=== PATIENT | male | born 1935 | race Caucasian/White ===

== ENCOUNTER 2017-06-12 20:14 | Emergency (ER) | payer MEDICARE, BC ==
[~2017-06-12] VITALS: Ht 170.2 cm; Wt 73.5 kg
[~2017-06-12 20:14] MED LIST: 8 Hour C500 MG; Cinnamon500 MG PO; Cyclobenzaprine5 MG PO; HYDCHL25 PO; Keflex500 MG PO; PROSTATE HEALT1 EACH PO; VITAMIN D310000 UNIT PO
== END 2017-06-12 23:45 | disposition home or self-care (01) ==
LOC: ER 20:14
DX: S00.83XA Contusion of other part of head, initial encounter (principal); I10 Essential (primary) hypertension; Z85.46 Personal history of malignant neoplasm of prostate; W18.30XA Fall on same level, unspecified, initial encounter; Z88.0 Allergy status to penicillin; Z79.899 Other long term (current) drug therapy; Z79.2 Long term (current) use of antibiotics; Z87.891 Personal history of nicotine dependence
CPT/HCPCS: 70450; 99284

== ENCOUNTER 2018-08-29 19:47 | Observation (INO) | payer MEDICARE, BC ==
[~2018-08-29] VITALS: Ht 177.8 cm; Wt 72.6 kg
[2018-08-29 20:14] LABS: BASOPHILS ABSOLUTE AUTO 0.04 K/mm3 (0.00-0.23); BASOPHILS PERCENT AUTO 1 % (0-2); EOSINOPHILS ABSOLUTE AUTO 0.14 K/mm3 (0.00-0.68); EOSINOPHILS PERCENT AUTO 2 % (0-6); Hematocrit 50.7 % (37.0-53.0); Hemoglobin 16.8 g/dL (13.5-17.5); IMMATURE GRAN ABSOLUTE AUTO 0.09 K/mm3 (0.00-0.10); IMMATURE GRAN PERCENT AUTO 1 % (0-1); LYMPHOCYTES ABSOLUTE AUTO 0.88 K/mm3 (0.84-5.20); LYMPHOCYTES PERCENT AUTO 11 % (21-46); MONOCYTES ABSOLUTE AUTO 0.82 K/mm3 (0.16-1.47); MONOCYTES PERCENT AUTO 10 % (4-13); Mean Corpuscular HGB Conc 33.1 g/dL (31.5-36.5); Mean Corpuscular Volume 100 fL (80-100); Mean Platelet Volume 10.5 fL (9.1-12.4); NEUTROPHILS ABSOLUTE AUTO 5.94 K/mm3 (1.96-9.15); NEUTROPHILS PERCENT AUTO 75 % (41-73); Platelet Count 143 K/mm3 (150-400); RDW Coefficient Variation 12.4 % (11.7-14.2); RDW Standard Deviation 45.7 fL (35.1-46.3); Red Blood Cell Count 5.09 M/mm3 (4.30-5.90); White Blood Cell Count 7.91 K/mm3 (4.00-11.30)
[2018-08-29 20:32] LABS: Albumin, Blood 3.8 g/dL (3.4-5.0); Albumin/Globulin Ratio 1.1 (0.8-1.8); Bilirubin, Total 0.5 mg/dL (0.1-1.0); Bun/Creatinine Ratio 18.1 (12.0-20.0); Calcium, Blood 9.1 mg/dL (8.5-10.1); Creatinine, Blood 1.55 mg/dL (0.60-1.20); Globulin, Blood 3.5 g/dL (2.2-4.0); Potassium, Blood 3.9 mmol/L (3.5-5.5); Total Protein, Blood 7.3 g/dL (6.4-8.2)
[2018-08-29 23:43] LABS: International Normalized Ratio 0.98; Prothrombin Time Results 10.4 Sec (9.7-11.5)
[2018-08-30 02:39] LABS: Source, Urine Clean Catch
[2018-08-30 02:41] LABS: Bilirubin, Urine Neg (Neg); Blood, Urine Neg (Neg); Glucose Qualitative, Urine Neg (Neg); Ketones, Urine Neg (Neg); Leukocyte Esterase, Urine Neg (Neg); Nitrite, Urine Neg (Neg); Protein, Urine Neg (Neg); Urobilinogen, Urine NORM (Normal)
[2018-08-30 02:46] LABS: Appearance, Urine Clear (Clear); Color, Urine Yellow (P-Yellow)
[2018-08-30 05:12] LABS: Hematocrit 48.3 % (37.0-53.0); Hemoglobin 16.3 g/dL (13.5-17.5); Mean Corpuscular HGB 33.6 pg (26.0-34.0); Mean Corpuscular HGB Conc 33.7 g/dL (31.5-36.5); Mean Corpuscular Volume 100 fL (80-100); Mean Platelet Volume 10.4 fL (9.1-12.4); Platelet Count 128 K/mm3 (150-400); RDW Coefficient Variation 12.5 % (11.7-14.2); RDW Standard Deviation 45.9 fL (35.1-46.3); Red Blood Cell Count 4.85 M/mm3 (4.30-5.90); White Blood Cell Count 9.58 K/mm3 (4.00-11.30)
[2018-08-30 05:34] LABS: Albumin, Blood 3.7 g/dL (3.4-5.0); Albumin/Globulin Ratio 1.2 (0.8-1.8); Bilirubin, Total 0.9 mg/dL (0.1-1.0); Calcium, Blood 8.7 mg/dL (8.5-10.1); Creatinine, Blood 1.28 mg/dL (0.60-1.20); Globulin, Blood 3.2 g/dL (2.2-4.0); Potassium, Blood 3.7 mmol/L (3.5-5.5); Total Protein, Blood 6.9 g/dL (6.4-8.2)
--- NOTE | 2018-08-30 08:04 | NUR ---
SHIFT SUMMARY PT A&O X3. 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 NEURO STATUS UNCHANGED OVER SHIFT. LACERATION TO POSTERIOR SCALP INTACT, GAUZE PLACED OVER SITE D/T SMALL AMOUNT OF SEROSANG DRAINAGE. BED ALARM AND SIDE RAILS FOR SAFETY. SCD'S TO BLE'S. RA; PT DENIES SOB, CP AND NAUSEA. TELEMETRY IN PLACE; SR WITH PVC'S. PT DEMONSTRATES CALL LIGHT USE. REPORT GIVEN TO DAY SHIFT RN.
--- NOTE | 2018-08-30 15:41 | NUR ---
SUMMARY PT IS A/O X2-3, FORGETFUL @ X'S HOWEVER EASILY REORIENTS. S/P FALL @ HOME (AMALIA TERRACE), LACERATION W THERESA IN PLACE TO OCCIPITAL REGION BACK OF HEAD. DRSG COVERING SITE TO ABSORB SM AMT BLEEDING. NEURO CHECKS UNCHANGED T/O DAY. DR SEPULVEDA IN TO SEE HIM THIS AM, ORDER REPEAT OF HEAD CT, RADIOLOGY STATE PROCEDURE WILL BE APPROX 2044 TONITE. TELE NSR 70'S. GERMANIA FISHER TODAY, STATE GAIT STEADY, SBA W FWW. PT IS CREEK, PLEASANT/COOPERATIVE. VSS.
--- NOTE | 2018-08-31 04:38 | NUR ---
SHIFT SUMMARY: PT IS ALERT AND ORIENTED. PT IS CALM AND COOPERATIVE WITH CARE. PT NOT USING HIS CALL LIGHT FOR ASSISTANCE, BED ALARM SET. PT IS A ONE PERSON ASSIST WITH FWW. REPEAT CT OF THE HEAD COMPLETED, RESULTS PENDING. PT DENIES PAIN, NAUSEA, VOMITING, AND SOB. NO ACUTE CHANGES OR COMPLICATIONS THIS SHIFT. BED IN LOW POSITION, CALL LIGHT WITHIN REACH.
[2018-08-31] MEDS ORDERED: ACET325 PO (12:02)
--- NOTE | 2018-08-31 15:17 | NUR ---
DISCHARGE NOTE IV DC'D WNL. MEDICATIONS FAXED TO PREFERED PHARMACY. PT ONLY DISCHARGED WITH ORDER FOR TYLENOL. PT DRESSED IN [facility] HIS PERSONAL CLOTHES WERE SOILED. PERSONAL BELONGINGS PROVIDED TO PT. TRANSPORT ARRANGED THROUGH [facility] VIA WHEELCHAIR. PT PROVIDED WITH HARDCOPY AND VERBAL INSTRUCTIONS FOR DISCHARGE. PT HAD NO FURTHER QUESTIONS. [facility] ARRIVED AND TRANSPORTED PT TO [facility].
== END 2018-08-31 14:48 | disposition home or self-care (01) ==
LOC: ER 19:47 → MEDS 23:52
PROVIDERS: Emergency Medicine; ADMIT Internal Medicine
DX: S06.2X9A Diffuse traumatic brain injury with loss of consciousness of unspecified duration, initial encounter (principal); S01.01XA Laceration without foreign body of scalp, initial encounter; N17.9 Acute kidney failure, unspecified; R53.1 Weakness; I12.9 Hypertensive chronic kidney disease with stage 1 through stage 4 chronic kidney disease, or unspecified chronic kidney disease; D69.6 Thrombocytopenia, unspecified; N18.3 Chronic kidney disease, stage 3 (moderate); C61 Malignant neoplasm of prostate; K57.92 Diverticulitis of intestine, part unspecified, without perforation or abscess without bleeding; Z88.0 Allergy status to penicillin; W18.30XA Fall on same level, unspecified, initial encounter
CPT/HCPCS: 12002; 36415; 70450; 72125; 80053; 81003; 82947; 83036; 85025; 85027; 85610; 93005; 93010; 97116; 97161; 99285-25; J7030

== ENCOUNTER 2018-10-27 18:02 | Emergency (ER) | payer MEDICARE ==
[~2018-10-27] VITALS: Ht 177.8 cm; Wt 74.8 kg
[~2018-10-27 18:02] MED LIST changes: +ACET325 PO
[2018-10-27 20:19] LABS: Source, Urine Clean Catch
[2018-10-27 20:20] LABS: BASOPHILS ABSOLUTE AUTO 0.04 K/mm3 (0.00-0.23); BASOPHILS PERCENT AUTO 1 % (0-2); EOSINOPHILS ABSOLUTE AUTO 0.13 K/mm3 (0.00-0.68); EOSINOPHILS PERCENT AUTO 2 % (0-6); Hematocrit 43.7 % (37.0-53.0); Hemoglobin 14.9 g/dL (13.5-17.5); IMMATURE GRAN ABSOLUTE AUTO 0.05 K/mm3 (0.00-0.10); IMMATURE GRAN PERCENT AUTO 1 % (0-1); LYMPHOCYTES ABSOLUTE AUTO 0.53 K/mm3 (0.84-5.20); LYMPHOCYTES PERCENT AUTO 7 % (21-46); MONOCYTES ABSOLUTE AUTO 0.72 K/mm3 (0.16-1.47); MONOCYTES PERCENT AUTO 9 % (4-13); Mean Corpuscular HGB Conc 34.1 g/dL (31.5-36.5); Mean Corpuscular Volume 100 fL (80-100); Mean Platelet Volume 10.5 fL (9.1-12.4); NEUTROPHILS ABSOLUTE AUTO 6.15 K/mm3 (1.96-9.15); NEUTROPHILS PERCENT AUTO 81 % (41-73); Platelet Count 155 K/mm3 (150-400); RDW Coefficient Variation 12.6 % (11.7-14.2); RDW Standard Deviation 46.2 fL (35.1-46.3); Red Blood Cell Count 4.38 M/mm3 (4.30-5.90); White Blood Cell Count 7.62 K/mm3 (4.00-11.30)
[2018-10-27 20:22] LABS: Appearance, Urine Clear (Clear); Bilirubin, Urine Neg (Neg); Blood, Urine Neg (Neg); Color, Urine Amber (P-Yellow); Glucose Qualitative, Urine Neg (Neg); Ketones, Urine 2+ (Neg); Leukocyte Esterase, Urine Neg (Neg); Nitrite, Urine Neg (Neg); Protein, Urine Neg (Neg); Specific Gravity, Urine 1.025 (1.003-1.022); Urobilinogen, Urine NORM (Normal)
[2018-10-27 20:42] LABS: Alanine Aminotransfer (ALT/SGP 30 U/L (12-78); Albumin, Blood 3.5 g/dL (3.4-5.0); Albumin/Globulin Ratio 1.1 (0.8-1.8); Alk Phos 70 U/L (50-136); Anion Gap 4 mmol/L (6-16); Aspartate Aminotrans (AST/SGOT 42 U/L (12-37); Bilirubin, Total 0.9 mg/dL (0.1-1.0); Blood Urea Nitrogen 31 mg/dL (8-24); Bun/Creatinine Ratio 22.8 (12.0-20.0); CO2, Blood 30 mmol/L (21-32); Calcium, Blood 8.8 mg/dL (8.5-10.1); Chloride, Blood 106 mmol/L (98-108); Creatinine, Blood 1.36 mg/dL (0.60-1.20); Ethanol (Alcohol), Blood, Med <3 mg/dL; Globulin, Blood 3.2 g/dL (2.2-4.0); Glomerular Filtration Rate 53 (60-); Glucose, Blood 146 mg/dL (70-99); Potassium, Blood 4.3 mmol/L (3.5-5.5); Sodium, Blood 140 mmol/L (136-145); Total Protein, Blood 6.7 g/dL (6.4-8.2)
== END 2018-10-27 21:50 | disposition short-term general hospital (02) ==
LOC: ER 18:02
PROVIDERS: Emergency Medicine
DX: S06.5X0A Traumatic subdural hemorrhage without loss of consciousness, initial encounter (principal); I10 Essential (primary) hypertension; Z88.0 Allergy status to penicillin; Z87.891 Personal history of nicotine dependence; Z91.81 History of falling; W19.XXXA Unspecified fall, initial encounter
CPT/HCPCS: 70450; 72125; 80053; 81003; 85025; 99285-25; G0480

== ENCOUNTER 2019-04-01 09:58 | Observation (INO) | payer MEDICARE, BC ==
[~2019-04-01] VITALS: Ht 177.8 cm; Wt 74.8 kg
[2019-04-01] MEDS ORDERED: GLIP5ER PO (12:16)
[2019-04-01] MEDS ORDERED: FINA5 PO (12:16)
[2019-04-01] MEDS ORDERED: METF500 PO (12:16)
[2019-04-01] MEDS ORDERED: Hydrochlorothia25 MG PO (12:17)
[2019-04-01 13:31] LABS: Hematocrit 36.1 % (37.0-53.0); Hemoglobin 11.9 g/dL (13.5-17.5); Mean Corpuscular HGB 34.2 pg (26.0-34.0); Mean Corpuscular Volume 104 fL (80-100); Mean Platelet Volume 10.1 fL (9.1-12.4); Platelet Count 153 K/mm3 (150-400); RDW Coefficient Variation 14.3 % (11.7-14.2); Red Blood Cell Count 3.48 M/mm3 (4.30-5.90); White Blood Cell Count 6.69 K/mm3 (4.00-11.30)
[2019-04-01 13:58] LABS: International Normalized Ratio 1.02; Prothrombin Time Results 10.8 Sec (9.7-11.5)
[2019-04-01 14:02] LABS: Magnesium, Blood 1.8 mg/dL (1.6-2.4)
[2019-04-01 14:03] LABS: Bun/Creatinine Ratio 17.6 (12.0-20.0); Calcium, Blood 8.2 mg/dL (8.5-10.1); Creatinine, Blood 1.31 mg/dL (0.60-1.20); Potassium, Blood 4.2 mmol/L (3.5-5.5)
[2019-04-01] MEDS ORDERED: CYAN1000I PO (15:52)
--- NOTE | 2019-04-01 17:45 | NUR ---
PATIENT TO [place] ATT[place] PATIENT LEFT THE UNIT BY HOSP BED TO [place] ATTOR[place], ACCOMPANIED BY TWO [place] ATTORNEY STAFF AND ONE EQUIPMENT SCHEDULER.
--- NOTE | 2019-04-01 18:53 | NUR ---
SHIFT SUMMARY ASSUMED CARE OF PATIENT AT AROUND 1530 HOURS, PT AWAKE AND ALERT ON ER CHUYITA, PT TRANSFERRED SELF TO UNIT HOSP BED WITH ONE PER ASSIST. PATIENT WAS NPO ON ARRIVAL PENDING PCI FOR DVT. MEDICATED AND TREATED PATIENT PER UNIT PROTOCOL AND MD ORDER, ALL VSS WHILE ON UNIT. PATIENT WAS ATTENDED FOR THE MAJORITY OF TIME BY RUBBER STAMP DIES INSPECTOR FROM HIS LIVING FACILITY, KARL FROM [facility]. PATIENT LEFT UNIT FOR GLUING MACHINE OFFBEARER PROCEDURE AT AROUND 1700, HAS NOT RETURNED BY END OF SHIFT. WILL TRANSFER CARE AND REPORT TO ONCOMING SHIFT.
--- NOTE | 2019-04-01 19:08 | NUR ---
Pt returned from the [facility] post Dr. Song procedure. Bedside report was given to Loreta Billings by Derian, RNs from the heart center. Caregiver Tomeka from [facility] is at the bedside.
--- NOTE | 2019-04-01 19:15 | NUR ---
CARE ASSUMPTION PT RETURN FROM [facility] @ APPROX 1900 W/ R GROIN ACCESS SITE. GROIN SITE WNL, NO BLEEDING, NO HEMATOMA. PT LYING FLAT. A&O X4. VSS. WILL CONTINUE TO MONITOR AND PROVIDE CARE.
[2019-04-02 03:41] LABS: Hematocrit 34.5 % (37.0-53.0); Hemoglobin 11.4 g/dL (13.5-17.5); Mean Corpuscular HGB 33.5 pg (26.0-34.0); Mean Corpuscular Volume 102 fL (80-100); Mean Platelet Volume 9.7 fL (9.1-12.4); Platelet Count 140 K/mm3 (150-400); RDW Coefficient Variation 14.2 % (11.7-14.2); RDW Standard Deviation 52.5 fL (35.1-46.3); White Blood Cell Count 5.94 K/mm3 (4.00-11.30)
[2019-04-02 04:05] LABS: Alanine Aminotransfer (ALT/SGP 14 U/L (12-78); Albumin, Blood 2.7 g/dL (3.4-5.0); Alk Phos 50 U/L (50-136); Anion Gap 4 mmol/L (6-16); Aspartate Aminotrans (AST/SGOT 14 U/L (12-37); Bilirubin, Total 0.6 mg/dL (0.1-1.0); Blood Urea Nitrogen 19 mg/dL (8-24); CO2, Blood 28 mmol/L (21-32); Calcium, Blood 7.8 mg/dL (8.5-10.1); Chloride, Blood 111 mmol/L (98-108); Creatinine, Blood 1.19 mg/dL (0.60-1.20); Globulin, Blood 2.6 g/dL (2.2-4.0); Glomerular Filtration Rate >60 (60-); Glucose, Blood 78 mg/dL (70-99); Magnesium, Blood 1.7 mg/dL (1.6-2.4); Potassium, Blood 3.9 mmol/L (3.5-5.5); Sodium, Blood 143 mmol/L (136-145); Total Protein, Blood 5.3 g/dL (6.4-8.2)
--- NOTE | 2019-04-02 04:14 | NUR ---
SHIFT SUMMARY PT A&O X4 W/ EPISODES OF FORGETFULNESS. R GROIN SITE RECOVERY WNL, NO BLEEDING, NO HEMATOMA. CBG'S IN THE 60s AFTER PT NOT EATING DINNER AND NOT WANTING TO SNACK. PT AGREEABLE TO DRINKING A GLASS OF ORANGE JUICE. CBG 78 W/ MORNING LABS. PT W/ EPISODES OF CONTINENCE AND INCONTINENCE THIS SHIFT, WEARING ATTENDS. PRN JERMAINE CARE/ATTENDS CHANGES PROVIDED. WILL CONTINUE TO MONITOR AND PROVIDE CARE UNTIL REPORT OFF TO DAY SHIFT RN.
--- NOTE | 2019-04-02 07:36 | NUR ---
ASSUMED CARE: PT RESTING IN BED. GROIN SITE WITHOUT SIGN OF HEMATOMA OR BLEEDING. +3 PITTING EDEMA NOTED TO LEFT FOOT WHICH NIGHT RN STATES IS IMPROVED. NO ACUTE NEEDS OR CONCERNS AT THIS TIME.
--- NOTE | 2019-04-02 10:00 | NUR ---
ASSISTED TO [facility]. 2 ASSIST, WITH WALKER. REQUIRED REDIERECTION AND WAS UNSTEADY ON FEET. BED ALARM ON. CAR BARN LABORER AWARE
--- NOTE | 2019-04-02 11:15 | NUR ---
DR FRANCIS CAME TO SEE PT. AWARE OF AMBULATION ISSUES THIS AM. ORDERS FOR PT/OT AND SS. WILL DETERMINE FURTHER NEEDS AFTER EVALS
--- NOTE | 2019-04-02 15:07 | NUR ---
ADMINISTRATORS FROM [facility] CAME BY TO SEE PT. PT/OT BOTH EVALUATED PT WITH 1 ASSIST RECOMMENDATIONS. ADMINISTRATORS AWARE THAT IT TOOK 2 ASSIST TO GET HIM OUT OF BED WITH FREQUENT PROMPTING. THEY WERE AGREEABLE TO TAKING HIM BACK UNDER THESE CIRCUMSTANCES. DC PLANNING SAID THAT DR FRANCIS PLANS TO EVALUATE LEG TOMORROW AND DETERMINE IF ABLE TO DC. [facility] STAFF STATES THEY CAN TAKE HIM BACK ON WEEKEND AND LEFT CONTACT INFORMATION. TUG MASTER AWARE
--- NOTE | 2019-04-02 17:09 | NUR ---
SPOKE WITH DR FRANCIS REGARDING PT'S DC PLAN. SAYS OK TO DC. CHECKED WITH DUNCAN AND COORDINATOR WENT HOME FOR THE DAY AND ADMIT WOULD HAVE TO BE IN AM. AWARE. POSSIBLE DC TOMORROW. TELECOM COORDINATOR AWARE
--- NOTE | 2019-04-02 18:31 | NUR ---
SHIFT SUMMARY: PT HAS BEEN UP IN CHAIR MOST OF DAY. CNAS ASSISTED PT BACK TO BED. BED OR CHAIR ALARMS IN PLACE. PT OCCASIONALLY USES CALL LIGHT OR CALLS OUT FOR HELP. PLAN IS FOR DC HOME TOMORROW. NO ACUTE NEEDS OR CONCERNS AT THIS TIME.
--- NOTE | 2019-04-03 06:17 | NUR ---
SHIFT SUMMARY PT HAS REMAINED ALERT AND ORIENTED TO SELF AND EVENT THROUGHOUT THE NIGHT, REMAINS DISORIENTED TO CURRENT DATE/TIME AND LOCATION. PT IS VERY PLEASANT AND COOPERATIEVE WITH CARE, EASILY REDIRECTABLE. PT HAS REMAINED ON BEDREST THROUGHOUT THE NIGHT, SHIFTING SELF IN BED AND AGREEABLE TO TURNING. HAS REMAINED MOSTLY INCONTINENT OF URINE, BUT DOES CALL OUT INTO THE HALLWAY FOR HELP, MOSTLY NEEDING TO USE RESTROOM. LLE REMAINS RED AND SWOLLEN THROUGHOUT THE NIGHT, PT DENIES PAIN TO EXTREMITY. PT WILL OCCASIONALLY SAY "OUCH" WHEN MOVING IN BED, BUT DENIES PAIN WHEN ASKED WHERE HE IS HURTING. NO OTHER CHANGES NOTED FROM INITIAL ASSESSMENT. WILL CONTINUE TO MONITOR AND REPORT TO ONCOMING SHIFT RN. BED IN LOW POSITION, CALL LIGHT IN REACH. BED ALARM SET FOR SAFETY.
--- NOTE | 2019-04-03 13:20 | NUR ---
[facility]
--- NOTE | 2019-04-03 14:41 | NUR ---
DISCHARGED REPORT CALLED TO [facility]. TELE DC'D. IV DC'D, CATHETER INTACT. PT LEFT UNIT IN WC W/POSSESSIONS AND DC PAPERWORK ACCOMPANIED BY TRANSPORT.
[2019-06-16] MEDS ORDERED: DICLOFEN 3%-HYA30 GM (09:46)
[2019-06-16] MEDS ORDERED: GAVILAX17 GM PO (09:46)
[2019-06-16] MEDS ORDERED: SENNA-S LAXATI1 EACH PO (09:47)
[2019-06-16] MEDS ORDERED: ENEMA BOTTLE1 EACH (09:48)
[2019-06-16] MEDS ORDERED: BISA10S PR (09:48)
[2019-06-16] MEDS ORDERED: Cyclobenzaprine5 MG PO (09:49)
[2019-06-16] MEDS ORDERED: FURO20 PO (09:49)
[2019-06-16] MEDS ORDERED: ACET325 PO (09:50)
[2019-06-16] MEDS ORDERED: Pepto-Bismol262 MG PO (09:50)
[2019-06-16] MEDS ORDERED: MILK OF MA400 MG/5 M PO (09:51)
[2019-06-16] MEDS ORDERED: MYLANTA TONIGH355 ML PO (09:52)
== END 2019-04-03 14:36 | disposition home or self-care (01) ==
LOC: ER 09:58 → PCU 12:56
PROVIDERS: Nurse Practitioner Acute Care; ADMIT Internal Medicine
DX: I82.412 Acute embolism and thrombosis of left femoral vein (principal); I82.442 Acute embolism and thrombosis of left tibial vein; I82.452 Acute embolism and thrombosis of left peroneal vein; I82.812 Embolism and thrombosis of superficial veins of left lower extremity; I12.9 Hypertensive chronic kidney disease with stage 1 through stage 4 chronic kidney disease, or unspecified chronic kidney disease; E11.22 Type 2 diabetes mellitus with diabetic chronic kidney disease; F03.90 Unspecified dementia, unspecified severity, without behavioral disturbance, psychotic disturbance, mood disturbance, and anxiety; N40.0 Benign prostatic hyperplasia without lower urinary tract symptoms; N18.3 Chronic kidney disease, stage 3 (moderate); Z66 Do not resuscitate; Z88.0 Allergy status to penicillin; Z79.84 Long term (current) use of oral hypoglycemic drugs; Z79.899 Other long term (current) drug therapy; Z91.81 History of falling; Z85.46 Personal history of malignant neoplasm of prostate; Z87.891 Personal history of nicotine dependence
CPT/HCPCS: 36415; 37191; 80048; 80053; 82947; 83735; 85027; 85610; 85730; 97116; 97162; 97165; 97530; 97535; 99152; 99153; 99285; C1769; C1880; C1894; G0378; J1644; J2250; J3010; J7030; Q9967

== ENCOUNTER 2019-06-16 11:31 | Day surgery (SDC) | payer MEDICARE, BC ==
[~2019-06-16] VITALS: Ht 170.2 cm; Wt 70.0 kg
[~2019-06-16 11:31] MED LIST changes: +BISA10S PR; +CYAN1000I PO; +DICLOFEN 3%-HYA30 GM; +ENEMA BOTTLE1 EACH; +FINA5 PO; +FURO20 PO; +GAVILAX17 GM PO; +GLIP5ER PO; +Hydrochlorothia25 MG PO; +METF500 PO; +MILK OF MA400 MG/5 M PO; +MYLANTA TONIGH355 ML PO; +Pepto-Bismol262 MG PO; +SENNA-S LAXATI1 EACH PO
[2019-06-16 13:02] LABS: BASOPHILS ABSOLUTE AUTO 0.04 K/mm3 (0.00-0.23); BASOPHILS PERCENT AUTO 1 % (0-2); EOSINOPHILS ABSOLUTE AUTO 0.13 K/mm3 (0.00-0.68); EOSINOPHILS PERCENT AUTO 2 % (0-6); Hematocrit 45.6 % (37.0-53.0); Hemoglobin 14.7 g/dL (13.5-17.5); IMMATURE GRAN ABSOLUTE AUTO 0.03 K/mm3 (0.00-0.10); IMMATURE GRAN PERCENT AUTO 0 % (0-1); LYMPHOCYTES ABSOLUTE AUTO 0.67 K/mm3 (0.84-5.20); LYMPHOCYTES PERCENT AUTO 9 % (21-46); MONOCYTES ABSOLUTE AUTO 0.69 K/mm3 (0.16-1.47); MONOCYTES PERCENT AUTO 9 % (4-13); Mean Corpuscular HGB 32.8 pg (26.0-34.0); Mean Corpuscular HGB Conc 32.2 g/dL (31.5-36.5); Mean Corpuscular Volume 102 fL (80-100); Mean Platelet Volume 10.6 fL (9.1-12.4); NEUTROPHILS ABSOLUTE AUTO 6.35 K/mm3 (1.96-9.15); NEUTROPHILS PERCENT AUTO 80 % (41-73); Platelet Count 162 K/mm3 (150-400); Red Blood Cell Count 4.48 M/mm3 (4.30-5.90); White Blood Cell Count 7.91 K/mm3 (4.00-11.30)
[2019-06-16 13:16] LABS: International Normalized Ratio 1.01; Prothrombin Time Results 10.8 Sec (9.7-11.5)
--- NOTE | 2019-06-16 13:36 | NUR ---
PT MEDICATED WITH 1/2 AMP OF D5 PER ORDERS PER MD. PLAN TO RECHECK PTS CBG IN 15MINS
[2019-06-16 13:59] LABS: Albumin, Blood 3.8 g/dL (3.4-5.0); Albumin/Globulin Ratio 1.1 (0.8-1.8); Bilirubin, Total 0.5 mg/dL (0.1-1.0); Bun/Creatinine Ratio 22.9 (12.0-20.0); Creatinine, Blood 1.44 mg/dL (0.60-1.20); Globulin, Blood 3.6 g/dL (2.2-4.0); Potassium, Blood 4.1 mmol/L (3.5-5.5); Total Protein, Blood 7.4 g/dL (6.4-8.2)
--- NOTE | 2019-06-16 15:20 | NUR ---
PT TO RECOVERY POST PROCEDURE. PT IS AWAKE AND ANSWERING QUESTIONS APPROPRIATELY. PT DENIES PAIN OR SOB. MONITOR SR WITH PVC'S 60'S, B/P 155/69, AFEBRILE, SPO2 96% RA. PT'S BLOOD SUGAR 71-ASYMPTOMATIC, ADMINISTERED 240 CC ORANGE JUICE-WILL CONTINUE TO MONITOR. R NECK ACCESS SITE (VENOUS) NO SWELLING/HEMATOMA, DAVID AND TEGADERM DRSG INTACT.
--- NOTE | 2019-06-16 16:45 | NUR ---
PT WAS TOTAL ASSIST TO GET DRESSED, INC OF URINE, PERICARE PERFORMED AND BRIEF CHANGED; IV REMOVED-CANNULA INTACT. PT WAS 2 PERSON MAX ASSIST TRANSFER FROM [facility] TO /C.
--- NOTE | 2019-06-16 16:50 | NUR ---
PT AND CAREGIVER RECEIVED DISCHARGE INSTRUCTIONS, MED LIST AND "AFTER CARE" INSTRUCTIONS; VERBALIZED GOOD UNDERSTANDING. PT LEFT FACILITY VIA W/C, CONDITION STABLE.
== END 2019-06-16 16:50 | disposition home or self-care (01) ==
LOC: MHTC 11:31
PROVIDERS: Radiology Diagnostic Radiology
DX: Z45.2 Encounter for adjustment and management of vascular access device (principal); I82.409 Acute embolism and thrombosis of unspecified deep veins of unspecified lower extremity; E11.9 Type 2 diabetes mellitus without complications; I10 Essential (primary) hypertension; N40.0 Benign prostatic hyperplasia without lower urinary tract symptoms; Z87.19 Personal history of other diseases of the digestive system; Z85.46 Personal history of malignant neoplasm of prostate; Z88.0 Allergy status to penicillin; Z91.048 Other nonmedicinal substance allergy status; Z79.84 Long term (current) use of oral hypoglycemic drugs; Z79.899 Other long term (current) drug therapy
CPT/HCPCS: 36415; 37193; 80053; 82947; 83036; 84443; 85025; 85610; 99152; 99153; C1769; C1773; C1880; C1887; C1894; J1644; J2250; J3010; J7030; Q9967

== ENCOUNTER 2019-07-27 11:24 | Observation (INO) | payer MEDICARE, BC ==
[~2019-07-27] VITALS: Ht 172.7 cm; Wt 78.0 kg
[2019-07-27 13:40] LABS: BASOPHILS ABSOLUTE AUTO 0.01 K/mm3 (0.00-0.23); BASOPHILS PERCENT AUTO 0 % (0-2); EOSINOPHILS PERCENT AUTO 0 % (0-6); Hematocrit 43.3 % (37.0-53.0); Hemoglobin 14.1 g/dL (13.5-17.5); IMMATURE GRAN ABSOLUTE AUTO 0.02 K/mm3 (0.00-0.10); IMMATURE GRAN PERCENT AUTO 0 % (0-1); LYMPHOCYTES ABSOLUTE AUTO 0.32 K/mm3 (0.84-5.20); LYMPHOCYTES PERCENT AUTO 6 % (21-46); MONOCYTES ABSOLUTE AUTO 0.65 K/mm3 (0.16-1.47); MONOCYTES PERCENT AUTO 13 % (4-13); Mean Corpuscular HGB Conc 32.6 g/dL (31.5-36.5); Mean Corpuscular Volume 101 fL (80-100); Mean Platelet Volume 11.2 fL (9.1-12.4); NEUTROPHILS ABSOLUTE AUTO 4.05 K/mm3 (1.96-9.15); NEUTROPHILS PERCENT AUTO 80 % (41-73); Platelet Count 100 K/mm3 (150-400); RDW Coefficient Variation 12.7 % (11.7-14.2); RDW Standard Deviation 47.7 fL (35.1-46.3); Red Blood Cell Count 4.27 M/mm3 (4.30-5.90); White Blood Cell Count 5.05 K/mm3 (4.00-11.30)
[2019-07-27 13:58] LABS: Adenovirus Not Detected (NOT DETECT); Coronavirus 229E Not Detected (NOT DETECT); Coronavirus HKU1 Not Detected (NOT DETECT); Coronavirus NL63 Not Detected (NOT DETECT)
[2019-07-27 13:58] LABS: Alanine Aminotransfer (ALT/SGP 20 U/L (12-78); Albumin, Blood 3.2 g/dL (3.4-5.0); Albumin/Globulin Ratio 0.9 (0.8-1.8); Alk Phos 52 U/L (50-136); Anion Gap 6 mmol/L (6-16); Aspartate Aminotrans (AST/SGOT 29 U/L (12-37); Bilirubin, Total 0.4 mg/dL (0.1-1.0); Blood Urea Nitrogen 31 mg/dL (8-24); Bun/Creatinine Ratio 19.3 (12.0-20.0); CO2, Blood 29 mmol/L (21-32); Calcium, Blood 8.3 mg/dL (8.5-10.1); Chloride, Blood 110 mmol/L (98-108); Creatinine, Blood 1.61 mg/dL (0.60-1.20); Globulin, Blood 3.5 g/dL (2.2-4.0); Glomerular Filtration Rate 44 (60-); Glucose, Blood 120 mg/dL (70-99); Potassium, Blood 3.9 mmol/L (3.5-5.5); Sodium, Blood 145 mmol/L (136-145); Total Protein, Blood 6.7 g/dL (6.4-8.2); Troponin I <0.015 ng/mL (0.000-0.040)
[2019-07-27 13:59] LABS: Bordetella pertussis Not Detected (NOT DETECT); Chlamydophila pneumoniae Not Detected (NOT DETECT); Coronavirus OC43 Not Detected (NOT DETECT); Human Metapneumovirus Not Detected (NOT DETECT); Human Rhinovirus/Enterovirus Not Detected (NOT DETECT); Influenza A/2009-H1 Detected (NOT DETECT); Influenza A/H1 Not Detected (NOT DETECT); Influenza A/H3 Not Detected (NOT DETECT); Influenza B Not Detected (NOT DETECT); Mycoplasma pneumoniae Not Detected (NOT DETECT); Parainfluenza Virus 1 Not Detected (NOT DETECT); Parainfluenza Virus 2 Not Detected (NOT DETECT); Parainfluenza Virus 3 Not Detected (NOT DETECT); Parainfluenza Virus 4 Not Detected (NOT DETECT); Respiratory Syncytial Virus Not Detected (NOT DETECT)
[2019-07-27] MEDS ORDERED: GERI-HYDROLAC222 ML TOP (15:27)
--- NOTE | 2019-07-27 18:43 | NUR ---
SHIFT SUMMARY ED ADMIT THIS AFTERNOON. PATIENT DENIES PAIN, NAUSEA, AND SHORTNESS OF BREATH. PATIENT PLEASANTLY CONFUSED. PATIENT HAD DIFFIUCLTY TRANSFERING FROM ED STRETCHER BUT IS AMBULATORY AT BASELINE. PATIENT MAINTAINING OXYGEN SATURATION ABOVE 92% ON ROOM AIR AT THIS TIME. OCCASSIONAL NONPRODUCTIVE COUGH. CALL LIGHT IN REACH.
[2019-07-27 21:27] LABS: Source, Urine Clean Catch
[2019-07-27 21:31] LABS: Bilirubin, Urine Neg (Neg); Blood, Urine Neg (Neg); Glucose Qualitative, Urine Neg (Neg); Ketones, Urine Neg (Neg); Leukocyte Esterase, Urine Neg (Neg); Nitrite, Urine Neg (Neg); Protein, Urine Neg (Neg); Urobilinogen, Urine NORM (Normal)
[2019-07-27 21:32] LABS: Appearance, Urine Clear (Clear); Color, Urine Yellow (P-Yellow)
[2019-07-28] MEDS ORDERED: CYAN500 PO (01:04)
[2019-07-28] MEDS ORDERED: BISM87SU PO (01:07)
[2019-07-28] MEDS ORDERED: ACET325 PO (01:10)
--- NOTE | 2019-07-28 04:49 | NUR ---
SHIFT SUMMARY PT HAD UNEVENTFUL NIGHT. REMAINED ON RA. NO S/S OF RESPIRATORY DISTRESS. LUNG SOUNDS DIM THROUGHOUT. PT DOES APPEAR TO LOOK SLIGHTLY SOB WHEN LAYING DOWN FLAT FOR ATTENDS CHANGE BUT PT DENIES FEELING THIS WAY. PT INCONTINENT THROUGH MOST OF THE EVENING. DID ATTEMPT TO GET OOB X 1 THIS SHIFT BUT WAS TOO WEAK AND WAS ONLY ABLE TO GET LEGS OFF THE SIDE OF THE BED. PT REPORTED WHEN ATTEMPTING THAT HE NEEDED TO USE THE RESTROOM. ASSISTED PT W/ URINAL. PT DENIES ANY PAIN OR DISCOMFORT. UPDATED PT'S TARA AND NATALIO GALEANO OVER THE PHONE. PT SLEPT THROUGH MOST OF THE NIGHT WHEN NOT BEING WOKEN BY STAFF. VITAL SIGNS STABLE. PT AFEBRILE. NO ACUTE CHANGES THIS SHIFT. WILL CONTINUE TO MONITOR.
[2019-07-28 05:00] LABS: BASOPHILS PERCENT AUTO 0 % (0-2); EOSINOPHILS ABSOLUTE AUTO 0.05 K/mm3 (0.00-0.68); EOSINOPHILS PERCENT AUTO 1 % (0-6); Hematocrit 39.7 % (37.0-53.0); Hemoglobin 12.7 g/dL (13.5-17.5); IMMATURE GRAN ABSOLUTE AUTO 0.01 K/mm3 (0.00-0.10); IMMATURE GRAN PERCENT AUTO 0 % (0-1); LYMPHOCYTES ABSOLUTE AUTO 0.58 K/mm3 (0.84-5.20); LYMPHOCYTES PERCENT AUTO 17 % (21-46); MONOCYTES ABSOLUTE AUTO 0.37 K/mm3 (0.16-1.47); MONOCYTES PERCENT AUTO 11 % (4-13); Mean Corpuscular HGB 32.2 pg (26.0-34.0); Mean Corpuscular Volume 101 fL (80-100); Mean Platelet Volume 10.7 fL (9.1-12.4); NEUTROPHILS ABSOLUTE AUTO 2.44 K/mm3 (1.96-9.15); NEUTROPHILS PERCENT AUTO 71 % (41-73); Platelet Count 81 K/mm3 (150-400); RDW Coefficient Variation 12.6 % (11.7-14.2); RDW Standard Deviation 47.4 fL (35.1-46.3); Red Blood Cell Count 3.94 M/mm3 (4.30-5.90); White Blood Cell Count 3.45 K/mm3 (4.00-11.30)
[2019-07-28 05:26] LABS: Albumin, Blood 2.8 g/dL (3.4-5.0); Albumin/Globulin Ratio 0.9 (0.8-1.8); Bilirubin, Total 0.5 mg/dL (0.1-1.0); Bun/Creatinine Ratio 22.6 (12.0-20.0); Creatinine, Blood 1.37 mg/dL (0.60-1.20); Potassium, Blood 4.2 mmol/L (3.5-5.5); Total Protein, Blood 5.8 g/dL (6.4-8.2)
[2019-07-28 16:42] LABS: PO2 Arterial 103 mmHg (80-100); pH Blood Arterial 7.41 (7.35-7.45)
--- NOTE | 2019-07-28 18:39 | NUR ---
SHIFT SUMMARY PATIENT DENIES PAIN BUT IS STILL AND RESISTANT WITH MOVEMENT AND BED MOBILITY. PATIENT DENEIS NAUSEA AND IS EATING AND DRINKING WELL. PT AND OT WORKED WITH PATIENT. PATIENT UNABLE TO SIT AT EDGE OF BED. PATIENT HAD A CHANGE IN STATUS THIS AFTERNOON AND BECAME SHORT OF BREATH WITH RESPIRATIONS IN THE LOW 30'S, 2L/02 VIA NC APPLIED. HE HAD A FEVER OF 101.5 FOR WHICH TYLENOL WAS GIVEN. DR. VALLEJO NOTIFIED, ORDERS GIVEN FOR ABG, CHEST XRAY, AND ALBUTEROL NEB. ABG AND CHEST XRAY UNREMARKABLE, FEVER REDUCED TO 99.8 AFTER TYLENOL. PATIENT STATES HE IS FEELING MUCH BETTER NOW. RESPIRATIONS NOW 20-22, PATIENT RESTING QUIETLY. RESPIRATION EVEN AND UNLABORED. CALL LIGHT IN REACH.
--- NOTE | 2019-07-29 06:22 | NUR ---
SHIFT SUMMARY PT WENT TO SLEEP SHORTLY AFTER EVENING ASSESMENT AND MED PASS. HAS SLEPT MUCH OF THE NIGHT. AWAKENS EASLIY DURING ATTENDS AND POSITION CHANGES. HAS HAD A WET SOUNDING COUGH. VSS. ON 2LNC. NO ACUTE CHANGES NOTED. WILL CONTINUE TO MONITOR.
--- NOTE | 2019-07-29 17:05 | NUR ---
SHIFT SUMMARY PT IS ALERT AND ORIENTED TO SELF, PT WAS CONFUSSED ON AND SITUATION. PT HAS BECAME COMBATIVE DURING CARE THIS SHIFT. PT COMPLAINES OF PAIN WHEN ROLLING FROM SIDE TO SIDE, BUT APPEARS COMFORTABLE AND PLEASENT WHEN RESTING. PT TOLORATED MEALS THIS SHIFT AND SAMMIE ANY NAUSEA. PT BECAME SOB OF BREATH WITH EXCERTION, PT 2L OF N/C. LUNGS DIMINISHED IN ALL LOBES. PT RECOVERED WHEN RESTING PT HAS BED ALARM ON AND CALL LIGHT WITH IN REACH WILL COUNTINUE TO MONITOR.
--- NOTE | 2019-07-30 08:02 | NUR ---
SHIFT SUMMARY NO ACUTE CHANGES NOTED THIS NIGHT. PT COOPERATIVE WITH CARE BUT FEARFUL WITH TURNING AND ATTENDS CHANGE. VSS. THIS MORNING PT WAS FOUND TO HAVE REMOVED NASAL CANULA AND WAS SATTING AT 96 ON RA. REPORT TO ONCOMING RN.
[2019-07-30] MEDS ORDERED: ALBU2.5V5 INH (11:02)
[2019-07-30] MEDS ORDERED: Tamiflu30 MG PO (11:03)
--- NOTE | 2019-07-30 12:37 | NUR ---
SPOKE WITH KARL (CAREGIVER) WHO ADVISED UNABLE TO TAKE PT BACK TO FACILITY [facility] IF PT IS 2 PERSON ASSIST. SPOKE WITH CARE MANAGEMENT TO ADVISE OF THE UPDATE. CARE MANAGEMENT TO CONTINUE WORKING ON PLACEMENT.
--- NOTE | 2019-07-30 18:11 | NUR ---
SHIFT SUMMARY PT A/O TO SELF AND BUILDING. PT IS A TWO PERSON MAX ASSIST. IV FLUIDS INFUSING THROUGHOUT SHIFT. VSS. PT TURNED Q2 HOURS AND JERMAINE CARE COMPLETED AFTER EACH INCONTINENT EPISODE. PT BEGAN SHIFT WITH O2 ON AND AFTERNOON PROGRESSED WAS ABLE TO MOVE TO ROOM AIR. D/C ORDERS ENTERED BUT PT NEEDS A HIGHER LEVEL OF CARE SO AWAITING PLACEMENT
--- NOTE | 2019-07-31 06:26 | NUR ---
PT REMAINS IN DROPLET ISOLATION WHILE BEING TREATED FOR SWINE FLU. CHANGED AND REPOSITIONED EVERY TWO HOURS, INCONT OF URINE EACH TIME. SOMEWHAT RESISTENT TO REPOSITIONING, EVIDENCED BY GRABBING BED RAILS AND RELUCTANCE TO TURN. DENIED PAIN WHEN ASKED. CALL LIGHT IN REACH.
--- NOTE | 2019-07-31 19:00 | NUR ---
PT. LYING IN BED. NO NOTEABLE CHANGES THIS SHIFT EXCEPT HIS NIECE WHO IS POWER OF WINE MAKER RELATED THAT THE PT. IS A DNR. SHE WILLBE FAXING PAPERWORK TO THAT EFFECT TOMORROW. IT WILL SAY ATTENTION ROOM#361.
--- NOTE | 2019-08-01 03:43 | NUR ---
PT CONTINUES ON DROPLET ISOLATION PRECAUTIONS FOR SWINE FLU, TAKING TAMAFLU. REPOSITOINED AND CHANGED FOR INCONT OF URINE A FEW TIMES THIS SHIFT. PT CAN TURN SELF BUT SEEMS TO FIGHT AND RESIST WHEN ASSISTED TO ANTHER POSITION. LUNGS REMAIN DIMINISHED TO AUSCULTATION. CALL LIGHT IN REACH. NO NOTED ACUTE DISTRESS AT THIS TIME.
[2019-08-01 05:02] LABS: BASOPHILS ABSOLUTE AUTO 0.01 K/mm3 (0.00-0.23); BASOPHILS PERCENT AUTO 0 % (0-2); EOSINOPHILS ABSOLUTE AUTO 0.12 K/mm3 (0.00-0.68); EOSINOPHILS PERCENT AUTO 3 % (0-6); Hematocrit 39.5 % (37.0-53.0); Hemoglobin 12.9 g/dL (13.5-17.5); IMMATURE GRAN ABSOLUTE AUTO 0.03 K/mm3 (0.00-0.10); IMMATURE GRAN PERCENT AUTO 1 % (0-1); LYMPHOCYTES ABSOLUTE AUTO 0.68 K/mm3 (0.84-5.20); LYMPHOCYTES PERCENT AUTO 18 % (21-46); MONOCYTES ABSOLUTE AUTO 0.46 K/mm3 (0.16-1.47); MONOCYTES PERCENT AUTO 12 % (4-13); Mean Corpuscular HGB 32.3 pg (26.0-34.0); Mean Corpuscular HGB Conc 32.7 g/dL (31.5-36.5); Mean Corpuscular Volume 99 fL (80-100); Mean Platelet Volume 11.3 fL (9.1-12.4); NEUTROPHILS PERCENT AUTO 66 % (41-73); Platelet Count 105 K/mm3 (150-400); RDW Standard Deviation 44.6 fL (35.1-46.3); Red Blood Cell Count 3.99 M/mm3 (4.30-5.90)
[2019-08-01 05:32] LABS: Anion Gap 6 mmol/L (6-16); Blood Urea Nitrogen 24 mg/dL (8-24); Bun/Creatinine Ratio 20.5 (12.0-20.0); CO2, Blood 27 mmol/L (21-32); Calcium, Blood 8.3 mg/dL (8.5-10.1); Chloride, Blood 110 mmol/L (98-108); Creatinine, Blood 1.17 mg/dL (0.60-1.20); Glomerular Filtration Rate >60 (60-); Glucose, Blood 100 mg/dL (70-99); Potassium, Blood 3.9 mmol/L (3.5-5.5); Sodium, Blood 143 mmol/L (136-145)
[2019-08-01 14:50] LABS: Thyroid Stimulating Hormone 2.11 uIU/mL (0.360-4.800)
--- NOTE | 2019-08-01 18:14 | NUR ---
SHIFT SUMMARY PATIENT DENIES PAIN, NAUSEA, AND SHORTNESS OF BREATH. PATIENT UNABLE TO GET OUT OF BED OR DANGLE. PATIENT BALE TO ASSIST WITH ROLLING AND SITTING UP WHEN HE IS NOT BEING RESITIVE TO CARE. REPOSITIONED REGULARLY. PATIENT NAPPING OFF AND ON DURING SHIFT. CALL LIGHT IN REACH.
--- NOTE | 2019-08-01 22:43 | NUR ---
REPOSITOINED AND CHANGED EARLIER. WAS RECEPTIVE UNTIL HE ACTUALLY NEEDED TO BE TURNED, AT WHICH TIME HE GRABBED THE RAIL AND BECAME RESISTIVE. MEDICATIONS GIVEN PER MD ORDERS. CALL LIGHT IN REACH. DROPLET PRECAUTIONS MAINTAINED FOR SWINE FLU.
--- NOTE | 2019-08-02 05:35 | NUR ---
RESTING QUIETLY WITH OCCASIONAL WAKENING. DROPLET PRECAUTIONS CONTINUE DUE TO SX OF SWINE FLU. HAD BEEN TAKING TAMIFLU, BUT HAS NOW BEEN DISCONTINUED. ALERT TO QUESTIONS ASKED, CONTINUES TO SHOW ANXIETY WHEN MOVED IN BED. CALL LIGHT IN REACH.
--- NOTE | 2019-08-02 17:53 | NUR ---
PATIENT IS ALERT. ORIENTED TO HIMSELF AND FOLLOWING DIRECTIONS. INCONTINENT OF URINE, ATTENDS IN PLACE. Q2H TURNS AND REPOSITIONING WITH PILLOWS. PATIENT WORKED WITH PT TODAY. NEEDS ENCOURAGEMENT TO EAT FOOD. LAST BM ON 07/29/19, NEW BOWEL CARE ORDER PLACED. NO NEW CONCERNS TODAY. WILL CONTINUE TO MONITOR
--- NOTE | 2019-08-02 18:57 | NUR ---
Initial spiritual care note: Mr. Glass was irritable and dismissive of pastoral care. Advised internet marketing strategist services would remain available.
--- NOTE | 2019-08-02 20:08 | NUR ---
2008-ANEL IS SCRUNCHED DOWN IN BED, HELPED TO REPOSITION HIM. HE DENIED ANY PAIN OR DISCOMFORT. LUNG SOUNDS ARE DIMINISHED WITH SOME COURSE SOUNDS IN THE RIGHT LOWER LOBES. COUGH IS OCCATIONAL PRODUCTION OF THICK MUCUS. DENIES SOB. HE IS A VERY QUITE TO HIMSELF PERSON. DOES HAVE HISTORY OF DEMENTIA. IS ABLE TO STATE ORIENTATION X3, BUT DOES HAVE PERIODS OF CONFUSION. ADMINISTERED MEDICATION PER EMAR. DENIES ANY NEEDS AT THIS TIME. CALL LIGHT IN REACH.
--- NOTE | 2019-08-03 05:53 | NUR ---
SHIFT SUMMARY: ALMA WAS COOPERATIVE IN HIS CARE. VS HAVE BEEN WNL, AFEBRILE. DENIED PAIN OR DISCOMFORT EXCEPT WHEN HE IS POSITIONED. Q2 HOUR POSITION AND CHANGE, WHEN CHANGING HIM HE STIFFENS UP LIKE A BOARD. HE STATES HE HURTS ALL OVER ONLY WHEN HE IS MOVED. ENCOURAGED HIM TO HOLD A PILLOW INSTEAD OF GRABBING BARS TO HELP STAFF TURN HIM. STILL NO BM THIS SHIFT. IV PATENT AND FLUSHED. TOOK MEDS WITH NO PROBLEMS. NO FURTHER CHANGES TO NOTE THIS SHIFT. CALL LIGHT IN REACH.
--- NOTE | 2019-08-03 17:09 | NUR ---
PATIENT IS ALERT AND ORIENTED TO SELF, SURROUNDINGS AND FOLLOWING DIRECTIONS. PATIENT WORKED WITH PT AND OT TODAY AND WAS TRANSFERRED TO THE RECLINER. ANNE BOLESOR SMASH PIECER CAME TO THE HOSPITAL TO ASSESS THE PATIENT THIS AFTERNOON. 2PA WITH FWW AND GAITBELT TO TRANSFER. PATIENT IS INCONTINENT. A COMLPLETE BEDBATH WAS PERFORMED THIS MORNING. WILL CONTINUE TO MONITOR.
--- NOTE | 2019-08-03 19:20 | NUR ---
1920-ANEL IS VERY TIRED HE WAS UP IN THE CHAIR MOST OF THE DAY. HE ALSO DID NOT SLEEP WELL LAST NIGHT. HE IS CURRENTLY IN BED AND FALLING ASLEEP. DENIES ANY PAIN OR DISCOMFORT. LUNG SOUNDS HAVE NOT CHANGED, DID REPORT HE HAS PRODUCTIVE COUGH, LIGHT YELLOW SPUTUM. ATTENDS CURRENTLY DRY. REDNESS NOTED ON BOTTOM. REPOSITIONED WITH PILLOWS. CALL LIGHT IN REACH, WILL CONTINUE TO MONITOR.
--- NOTE | 2019-08-04 06:22 | NUR ---
SHIFT SUMMARY: ALMA HAD A BETTER NIGHT TONIGHT. HE SLEPT 90% OF THE SHIFT OTHER THEN STAFF WAKING HIM UP TO CHANGE HIM EVERY 2 HOURS. VS REMAINED WNL. NO PAIN NOTED. NO OTHER CHANGES TO REPORT THIS SHIFT. CALL LIGHT IN REACH.
--- NOTE | 2019-08-04 14:09 | NUR ---
HE WORKED WITH PT BUT DID POORLY FAR BEING ABLE TO DANGLE OR STAND. HE NEEDED MAX ASSIST. WE HAVE NOT USED A LIFT YET TODAY. WE ARE TURNING AND CHANGING HIM. HE IS EXTREMELY STIFF AND NEEDS REPITITION AND REASSURANCE WITH CARE. HE HAS NOT WANTED LUNCH.
--- NOTE | 2019-08-04 17:16 | NUR ---
HE HAS NOT EATEN TODAY OR TAKEN FLUIDS. I JUST GAVE HIM A VANILLA ENSURE. HE IS DRINKING IT WELL. I ENCOURAGED HIM TO FINISH IT. HE HAS SLEPT A LOT. HE IS VERY RIGID. HE HAS BEEN CHANGED T/O THE DAY. HIS U.O. IS MODERATE. HE CONTINUES TO BE IN DROPLET ISOLATION FOR THE FLU. VSS.
--- NOTE | 2019-08-05 06:22 | NUR ---
SHIFT SUMMARY PT IS AN 84 Y/O MALE, ADMITTED FOR THE SWINE FLU. HE IS A&O X 1-2, AND A LIFT PT. PT COMPLETED HIS TAMIFLU TREATMENT ON 07/31. NO COUGH OR SOB NOTED. NO COMPLAINTS OF PAIN OR NAUSEA. VITAL SIGNS STABLE. PT INCONTINENT, TURN Q2H. NO ACUTE CHANGES IN PT CONDITION NOTED. WILL CONTINUE TO MONITOR AND TREAT PER EMAR UNTIL HAND OFF TO DAY SHIFT RN.
--- NOTE | 2019-08-05 12:57 | NUR ---
HE IS EATING LUNCH. HE ALSO ATE A LITTLE BREAKFAST AND DRANK WELL. HE HAS NO COMPLAINTS. HE HAS AN OCCASIONAL NON-PRODUCTIVE COUGH. NO SOB AND VSS. HE WILL DC TO [facility] TODAY AROUND 1345.
--- NOTE | 2019-08-05 14:30 | NUR ---
PT PICKED UP AT 1429 BY [facility]. PT IN NO APPARENT DISTRESS AT TIME OF DISCHARGE.
== END 2019-08-05 14:20 | disposition home or self-care (01) ==
LOC: ER 11:24 → MEDS 11:25 → ENPENDDIS 07-30 10:00 → MEDS 07-30 23:28
PROVIDERS: Emergency Medicine; Internal Medicine; Nurse Practitioner Acute Care; ADMIT Internal Medicine
DX: J10.1 Influenza due to other identified influenza virus with other respiratory manifestations (principal); I12.9 Hypertensive chronic kidney disease with stage 1 through stage 4 chronic kidney disease, or unspecified chronic kidney disease; E11.22 Type 2 diabetes mellitus with diabetic chronic kidney disease; N18.3 Chronic kidney disease, stage 3 (moderate); N40.0 Benign prostatic hyperplasia without lower urinary tract symptoms; Z85.46 Personal history of malignant neoplasm of prostate; Z88.0 Allergy status to penicillin; Z79.84 Long term (current) use of oral hypoglycemic drugs; Z79.899 Other long term (current) drug therapy; Z74.09 Other reduced mobility
CPT/HCPCS: 0099U; 36415; 36600; 71045; 80048; 80053; 81003; 82607; 82746; 82803; 82947; 83605; 83880; 84145; 84443; 84484; 85025; 87040; 93005; 93010; 94640; 94760; 94761; 96360; 96361; 96372; 97110; 97163; 97166; 97530; 97535; 99285-25; A9270; A9270-GY; G0378; J1644; J7030

== ENCOUNTER → 2020-02-01 | Outpatient (CLI) | payer MEDICARE, BC ==
[~2020-02-01] MED LIST changes: +ALBU2.5V5 INH; +AZIT250 PO; +BISM87SU PO; +CYAN500 PO; +GERI-HYDROLAC222 ML TOP; +SENN187 PO; +Tamiflu30 MG PO
[2020-02-01 13:55] LABS: Bilirubin, Urine Neg (Neg); Blood, Urine 1+ (Neg); Glucose Qualitative, Urine Neg (Neg); Ketones, Urine Neg (Neg); Leukocyte Esterase, Urine Neg (Neg); Nitrite, Urine Neg (Neg); Protein, Urine Neg (Neg); Specific Gravity, Urine 1.015 (1.003-1.022); Urobilinogen, Urine NORM (Normal)
[2020-02-01 14:36] LABS: Appearance, Urine Clear (Clear); Bacteria Not Seen /hpf; Color, Urine Yellow (P-Yellow); Red Blood Cells, Urine 0-2 /hpf (0-2); Squamous Epithelial Cells Not Seen /hpf (Few); White Blood Cells, Urine Not Seen /hpf (0-5)
== END ==
LOC: LAB SHORT 12:51 → LAB 12:51
PROVIDERS: Nurse Practitioner Family
DX: N39.0 Urinary tract infection, site not specified (principal)
CPT/HCPCS: 81001; 87086

== ENCOUNTER 2020-02-08 10:26 | Emergency (ER) | payer MEDICARE, BC, OTHER ==
[~2020-02-08] VITALS: Ht 177.8 cm; Wt 74.8 kg
[~2020-02-08 10:26] MED LIST changes: -AZIT250 PO; -SENN187 PO
[2020-02-08] MEDS ORDERED: SENN187 PO (10:41)
[2020-02-08] MEDS ORDERED: AZIT250 PO (14:37)
== END 2020-02-08 15:00 | disposition home or self-care (01) ==
LOC: ER 10:26
DX: J18.9 Pneumonia, unspecified organism (principal); I10 Essential (primary) hypertension; Z87.891 Personal history of nicotine dependence; Z20.828 Contact with and (suspected) exposure to other viral communicable diseases; Z88.0 Allergy status to penicillin; Z91.09 Other allergy status, other than to drugs and biological substances; Z79.899 Other long term (current) drug therapy
CPT/HCPCS: 71045; 99283-25; U0002

== ENCOUNTER 2020-04-05 18:42 | Emergency (ER) | payer MEDICARE, BC ==
[~2020-04-05] VITALS: Ht 177.8 cm; Wt 74.8 kg
[~2020-04-05 18:42] MED LIST changes: +AZIT250 PO; +SENN187 PO
[2020-04-05 20:12] LABS: Source, Urine Catheter
[2020-04-05 20:18] LABS: Bilirubin, Urine Neg (Neg); Blood, Urine Neg (Neg); Glucose Qualitative, Urine Neg (Neg); Ketones, Urine Neg (Neg); Leukocyte Esterase, Urine Neg (Neg); Nitrite, Urine Neg (Neg); Protein, Urine Neg (Neg); Urobilinogen, Urine NORM (Normal)
[2020-04-05 20:36] LABS: Appearance, Urine Clear (Clear); Color, Urine Yellow (P-Yellow)
[2020-04-05 20:39] LABS: BASOPHILS ABSOLUTE AUTO 0.03 K/mm3 (0.00-0.23); BASOPHILS PERCENT AUTO 1 % (0-2); EOSINOPHILS ABSOLUTE AUTO 0.17 K/mm3 (0.00-0.68); EOSINOPHILS PERCENT AUTO 3 % (0-6); Hematocrit 43.5 % (37.0-53.0); Hemoglobin 14.2 g/dL (13.5-17.5); IMMATURE GRAN ABSOLUTE AUTO 0.02 K/mm3 (0.00-0.10); IMMATURE GRAN PERCENT AUTO 0 % (0-1); LYMPHOCYTES ABSOLUTE AUTO 0.72 K/mm3 (0.84-5.20); LYMPHOCYTES PERCENT AUTO 11 % (21-46); MONOCYTES ABSOLUTE AUTO 0.65 K/mm3 (0.16-1.47); MONOCYTES PERCENT AUTO 10 % (4-13); Mean Corpuscular HGB 32.3 pg (26.0-34.0); Mean Corpuscular HGB Conc 32.6 g/dL (31.5-36.5); Mean Corpuscular Volume 99 fL (80-100); Mean Platelet Volume 10.3 fL (9.1-12.4); NEUTROPHILS ABSOLUTE AUTO 4.98 K/mm3 (1.96-9.15); NEUTROPHILS PERCENT AUTO 76 % (41-73); Platelet Count 137 K/mm3 (150-400); RDW Coefficient Variation 12.4 % (11.7-14.2); RDW Standard Deviation 45.1 fL (35.1-46.3); Red Blood Cell Count 4.39 M/mm3 (4.30-5.90); White Blood Cell Count 6.57 K/mm3 (4.00-11.30)
[2020-04-05 20:55] LABS: Albumin, Blood 3.5 g/dL (3.4-5.0); Bilirubin, Total 0.4 mg/dL (0.1-1.0); Bun/Creatinine Ratio 21.7 (12.0-20.0); Calcium, Blood 8.5 mg/dL (8.5-10.1); Creatinine, Blood 1.66 mg/dL (0.60-1.20); Globulin, Blood 3.4 g/dL (2.2-4.0); Total Protein, Blood 6.9 g/dL (6.4-8.2)
== END 2020-04-05 23:42 | disposition home or self-care (01) ==
LOC: ER 18:42 → EDBD 18:42 → ER 23:42
PROVIDERS: Physician Assistant
DX: R50.9 Fever, unspecified (principal); F03.90 Unspecified dementia, unspecified severity, without behavioral disturbance, psychotic disturbance, mood disturbance, and anxiety; I10 Essential (primary) hypertension; Z88.0 Allergy status to penicillin; Z91.09 Other allergy status, other than to drugs and biological substances; Z79.899 Other long term (current) drug therapy; Z87.891 Personal history of nicotine dependence
CPT/HCPCS: 36415; 71045; 80053; 81003; 85025; 96360; 99284-25; J7030

== ENCOUNTER 2021-01-06 15:12 | Emergency (ER) | payer MEDICARE, BC ==
[~2021-01-06] VITALS: Ht 177.8 cm; Wt 74.8 kg
[~2021-01-06 15:12] MED LIST changes: -Aspir 8181 MG; -CEPH250A; -ERYT.5TO LEFTEYE; -FINA5; -FURO20; -GLIP5
[2021-01-06] MEDS ORDERED: ERYT.5TO LEFTEYE (15:44)
== END 2021-01-06 16:32 | disposition home or self-care (01) ==
LOC: ER 15:12
DX: H57.89 Other specified disorders of eye and adnexa (principal); Q18.1 Preauricular sinus and cyst; I10 Essential (primary) hypertension; Z87.891 Personal history of nicotine dependence
CPT/HCPCS: 99283; A9270

== ENCOUNTER → 2021-01-06 | Outpatient (CLI) | payer MEDICARE, BC ==
[~2021-01-06] MED LIST changes: +Aspir 8181 MG; +CEPH250A; +ERYT.5TO LEFTEYE; +FINA5; +FURO20; +GLIP5
== END | disposition home or self-care (01) ==
LOC: LAB 07:50 → LAB SHORT 07:50
DX: Z20.822 Contact with and (suspected) exposure to COVID-19 (principal)
CPT/HCPCS: U0003

== ENCOUNTER → 2021-01-12 | Outpatient (CLI) | payer MEDICARE, BC ==
[~2021-01-12] MED LIST changes: +Aspir 8181 MG; +CEPH250A; +ERYT.5TO LEFTEYE; +FINA5; +FURO20; +GLIP5
== END | disposition home or self-care (01) ==
LOC: LAB SHORT 13:04 → LAB 13:04
DX: Z03.818 Encounter for observation for suspected exposure to other biological agents ruled out (principal); Z20.822 Contact with and (suspected) exposure to COVID-19
CPT/HCPCS: U0003

== ENCOUNTER 2021-01-20 19:02 | Emergency (ER) | payer MEDICARE, BC ==
[~2021-01-20] VITALS: Ht 175.3 cm; Wt 86.2 kg
[~2021-01-20 19:02] MED LIST changes: -Aspir 8181 MG; -CEPH250A; -FINA5; -FURO20; -GLIP5
[2021-01-20] MEDS ORDERED: GLIP5 (21:12)
[2021-01-20] MEDS ORDERED: FURO20 (21:12)
[2021-01-20] MEDS ORDERED: FINA5 (21:13)
[2021-01-20] MEDS ORDERED: Aspir 8181 MG (21:14)
[2021-01-20] MEDS ORDERED: CEPH250A (21:15)
== END 2021-01-20 21:15 | disposition home or self-care (01) ==
LOC: ER 19:02
DX: S51.812A Laceration without foreign body of left forearm, initial encounter (principal); I10 Essential (primary) hypertension; Z23 Encounter for immunization; Z88.0 Allergy status to penicillin; Z91.048 Other nonmedicinal substance allergy status; Z79.899 Other long term (current) drug therapy; X58.XXXA Exposure to other specified factors, initial encounter
CPT/HCPCS: 12004; 90471; 90714; 99282-25

== ENCOUNTER 2021-01-28 16:14 | Emergency (ER) | payer MEDICARE, BC ==
[~2021-01-28] VITALS: Ht 177.8 cm; Wt 74.8 kg
[~2021-01-28 16:14] MED LIST changes: +Aspir 8181 MG; +CEPH250A; +FINA5; +FURO20; +GLIP5
== END 2021-01-28 16:32 | disposition home or self-care (01) ==
LOC: ER 16:14
DX: S51.812D Laceration without foreign body of left forearm, subsequent encounter (principal); I10 Essential (primary) hypertension; Z88.0 Allergy status to penicillin; Z91.048 Other nonmedicinal substance allergy status; Z79.899 Other long term (current) drug therapy; Z79.84 Long term (current) use of oral hypoglycemic drugs; Z79.82 Long term (current) use of aspirin
CPT/HCPCS: 99283

== ENCOUNTER → 2021-02-06 | Outpatient (CLI) | payer MEDICARE, BC ==
[2021-02-08 15:52] LABS: CORONAVIRUS (COVID19) CSH-NRL Negative (Negative)
== END | disposition home or self-care (01) ==
LOC: LAB SHORT 08:00
PROVIDERS: Nurse Practitioner Family
DX: Z20.822 Contact with and (suspected) exposure to COVID-19 (principal)
CPT/HCPCS: U0003

== ENCOUNTER → 2021-02-09 | Outpatient (CLI) | payer MEDICARE, BC | END | disposition home or self-care (01) | LOC: LAB 15:14 → LAB SHORT 15:14 | DX: Z11.52 Encounter for screening for COVID-19 (principal); Z20.822 Contact with and (suspected) exposure to COVID-19 | CPT/HCPCS: U0003 ==

== ENCOUNTER 2021-08-27 22:06 | Emergency (ER) | payer MEDICARE, BC ==
[~2021-08-27] VITALS: Ht 172.7 cm; Wt 59.0 kg
== END 2021-08-28 00:21 | disposition home or self-care (01) ==
LOC: ER 22:06
DX: I87.2 Venous insufficiency (chronic) (peripheral) (principal); I10 Essential (primary) hypertension; Z79.899 Other long term (current) drug therapy; Z88.0 Allergy status to penicillin
CPT/HCPCS: 73610; 99283-25

== ENCOUNTER 2022-01-16 16:53 | Emergency (ER) | payer MEDICARE, BC ==
[~2022-01-16] VITALS: Ht 177.8 cm; Wt 81.7 kg
[2022-01-16 18:40] LABS: BASOPHILS ABSOLUTE AUTO 0.04 K/mm3 (0.00-0.23); BASOPHILS PERCENT AUTO 1 % (0-2); EOSINOPHILS ABSOLUTE AUTO 0.21 K/mm3 (0.00-0.68); EOSINOPHILS PERCENT AUTO 3 % (0-6); Hematocrit 42.9 % (37.0-53.0); Hemoglobin 14.4 g/dL (13.5-17.5); IMMATURE GRAN ABSOLUTE AUTO 0.04 K/mm3 (0.00-0.10); IMMATURE GRAN PERCENT AUTO 1 % (0-1); LYMPHOCYTES PERCENT AUTO 12 % (21-46); MONOCYTES ABSOLUTE AUTO 0.62 K/mm3 (0.16-1.47); MONOCYTES PERCENT AUTO 8 % (4-13); Mean Corpuscular HGB Conc 33.6 g/dL (31.5-36.5); Mean Corpuscular Volume 98 fL (80-100); Mean Platelet Volume 10.4 fL (9.1-12.4); NEUTROPHILS ABSOLUTE AUTO 5.73 K/mm3 (1.96-9.15); NEUTROPHILS PERCENT AUTO 76 % (41-73); Platelet Count 128 K/mm3 (150-400); RDW Coefficient Variation 12.7 % (11.7-14.2); RDW Standard Deviation 45.8 fL (35.1-46.3); Red Blood Cell Count 4.36 M/mm3 (4.30-5.90); White Blood Cell Count 7.54 K/mm3 (4.00-11.30)
[2022-01-16 18:58] LABS: Albumin, Blood 3.2 g/dL (3.4-5.0); Albumin/Globulin Ratio 0.9 (0.8-1.8); Bilirubin, Total 0.4 mg/dL (0.1-1.0); Bun/Creatinine Ratio 22.4 (12.0-20.0); C-REACTIVE PROTEIN, EXT RANGE 0.45 mg/dL (0.000-0.300); Calcium, Blood 8.5 mg/dL (8.5-10.1); Creatinine, Blood 1.34 mg/dL (0.60-1.20); Globulin, Blood 3.4 g/dL (2.2-4.0); Potassium, Blood 4.2 mmol/L (3.5-5.5); Total Protein, Blood 6.6 g/dL (6.4-8.2)
== END 2022-01-16 22:05 | disposition home or self-care (01) ==
LOC: ER 16:53
PROVIDERS: Student in an Organized Health Care Education/Training Program
DX: S91.109A Unspecified open wound of unspecified toe(s) without damage to nail, initial encounter (principal); E11.22 Type 2 diabetes mellitus with diabetic chronic kidney disease; I12.9 Hypertensive chronic kidney disease with stage 1 through stage 4 chronic kidney disease, or unspecified chronic kidney disease; N18.9 Chronic kidney disease, unspecified; Z79.899 Other long term (current) drug therapy; Z79.84 Long term (current) use of oral hypoglycemic drugs; Z79.82 Long term (current) use of aspirin; Z88.0 Allergy status to penicillin; Z91.09 Other allergy status, other than to drugs and biological substances; X58.XXXA Exposure to other specified factors, initial encounter; Z87.891 Personal history of nicotine dependence
CPT/HCPCS: 36415; 73620; 80053; 85025; 85651; 86140; 93925

== ENCOUNTER → 2022-02-27 | Outpatient (CLI) | payer MEDICARE, BC ==
[2022-02-27 15:57] LABS: Source, Urine Straight Cath
[2022-02-27 16:41] LABS: Appearance, Urine Hazy (Clear); Bilirubin, Urine Neg (Neg); Blood, Urine 4+ (Neg); Color, Urine Yellow (P-Yellow); Glucose Qualitative, Urine Neg (Neg); Ketones, Urine Neg (Neg); Leukocyte Esterase, Urine Neg (Neg); Nitrite, Urine Neg (Neg); Protein, Urine Neg (Neg); Specific Gravity, Urine 1.015 (1.003-1.022); Urobilinogen, Urine NORM (Normal)
[2022-02-27 16:57] LABS: Bacteria Rare /hpf; Squamous Epithelial Cells Rare /hpf (Few); White Blood Cells, Urine 0-2 /hpf (0-5)
== END | disposition home or self-care (01) ==
LOC: LAB SHORT 13:22 → LAB 13:22
PROVIDERS: Internal Medicine
DX: N39.0 Urinary tract infection, site not specified (principal)
CPT/HCPCS: 81001

== ENCOUNTER 2022-06-28 11:03 | Emergency (ER) | payer MEDICARE, BC ==
[~2022-06-28] VITALS: Ht 170.2 cm; Wt 81.7 kg
[2022-06-28] MEDS ORDERED: MELATONIN5 M1 PO (11:20)
[2022-06-28] MEDS ORDERED: QUET100 PO (11:21)
[2022-06-28 11:33] LABS: BASOPHILS ABSOLUTE AUTO 0.03 K/mm3 (0.00-0.23); BASOPHILS PERCENT AUTO 0 % (0-2); EOSINOPHILS ABSOLUTE AUTO 0.18 K/mm3 (0.00-0.68); EOSINOPHILS PERCENT AUTO 2 % (0-6); Hematocrit 43.8 % (37.0-53.0); Hemoglobin 14.6 g/dL (13.5-17.5); IMMATURE GRAN ABSOLUTE AUTO 0.04 K/mm3 (0.00-0.10); IMMATURE GRAN PERCENT AUTO 1 % (0-1); LYMPHOCYTES PERCENT AUTO 12 % (21-46); MONOCYTES ABSOLUTE AUTO 0.86 K/mm3 (0.16-1.47); MONOCYTES PERCENT AUTO 12 % (4-13); Mean Corpuscular HGB 32.4 pg (26.0-34.0); Mean Corpuscular HGB Conc 33.3 g/dL (31.5-36.5); Mean Corpuscular Volume 97 fL (80-100); Mean Platelet Volume 10.3 fL (9.1-12.4); NEUTROPHILS ABSOLUTE AUTO 5.42 K/mm3 (1.96-9.15); NEUTROPHILS PERCENT AUTO 73 % (41-73); Platelet Count 131 K/mm3 (150-400); RDW Coefficient Variation 13.2 % (11.7-14.2); RDW Standard Deviation 47.2 fL (35.1-46.3); White Blood Cell Count 7.43 K/mm3 (4.00-11.30)
[2022-06-28 11:46] LABS: Albumin, Blood 3.3 g/dL (3.4-5.0); Albumin/Globulin Ratio 0.8 (0.8-1.8); Bilirubin, Total 0.8 mg/dL (0.1-1.0); Bun/Creatinine Ratio 21.6 (12.0-20.0); Calcium, Blood 8.7 mg/dL (8.5-10.1); Creatinine, Blood 1.25 mg/dL (0.60-1.20); Potassium, Blood 3.7 mmol/L (3.5-5.5); Total Protein, Blood 7.3 g/dL (6.4-8.2)
[2022-06-28 12:28] LABS: Influenza A, PCR NEGATIVE (NEGATIVE); Influenza B, PCR NEGATIVE (NEGATIVE); Resp Syncytial Virus, PCR NEGATIVE (NEGATIVE); SARS-Cov-2 (COVID-19) PCR, MMC NEGATIVE (NEGATIVE)
[2022-06-28] MEDS ORDERED: Acetaminop160 MG/53 PO (14:15)
[2022-06-28] MEDS ORDERED: MORP20L SL (14:15)
--- NOTE | 2022-06-28 14:23 | NUR ---
Physician spoke with pt niece who is poa. they have been discussing hospice. called snf they feel he is declining. [place] initiated with referral. no preferance noted reviewed both agencies. pt returned with prn medications and intake packet sent for intake tomorrow.
== END 2022-06-28 17:30 | disposition home or self-care (01) ==
LOC: ER 11:03
PROVIDERS: Emergency Medicine
DX: R06.00 Dyspnea, unspecified (principal); R09.02 Hypoxemia; F41.9 Anxiety disorder, unspecified; I12.9 Hypertensive chronic kidney disease with stage 1 through stage 4 chronic kidney disease, or unspecified chronic kidney disease; E11.22 Type 2 diabetes mellitus with diabetic chronic kidney disease; N18.9 Chronic kidney disease, unspecified; Z88.0 Allergy status to penicillin; Z91.09 Other allergy status, other than to drugs and biological substances; Z79.82 Long term (current) use of aspirin; Z79.899 Other long term (current) drug therapy
CPT/HCPCS: 0241U; 71045; 71260; 80053; 83880; 84484; 85025; Q9967